=== PATIENT | female | born 1950 | race Caucasian/White ===

== ENCOUNTER 2021-11-19 23:44 | Emergency (ER) | payer MEDICARE ==
[2021-11-20 00:56] LABS: BASOPHIL 0.7 % (0-2); EOSINOPHIL 3.6 % (0-7); HCT 42.2 % (37.0-47.0); HGB 14.3 g/dl (12.5-16.0); LYMPHOCYTE 59.9 % (15-48); MCH 32.6 pg (25.0-31.0); MCHC 33.9 g/dL (32.0-36.0); MCV 96.3 fL (78.0-100.0); MONOCYTE 7.4 % (0-12); MPV 10.4 fL (6.0-9.5); NEUTROPHIL 28.2 % (41-80); NRBC 0; PLT 157 K/uL (150-400); RBC 4.38 M/uL (4.20-5.40); RDW 12.3 % (11.5-14.0); WBC 4.2 K/uL (4.0-10.5)
[2021-11-20 01:25] LABS: BILIRUBIN - TOTAL 0.4 mg/dL (0.2-1.0); BUN/CREAT RATIO (CALC) 15.2 RATIO; CREATININE 0.79 mg/dL (0.51-0.95); GLOBULIN (CALCULATION) 3.9 g/dL; TOTAL PROTEIN 7.9 g/dL (6.4-8.2)
[2021-11-20] MEDS ORDERED: ONDANSETRON ODT4 MG PO (02:00)
[2021-11-20] MEDS ORDERED: ZPAK PO (02:00)
== END 2021-11-20 02:00 | disposition home or self-care (01) ==
LOC: FER 23:44
PROVIDERS: Emergency Medicine
DX: U07.1 COVID-19 (principal); J44.9 Chronic obstructive pulmonary disease, unspecified; I11.0 Hypertensive heart disease with heart failure; I50.9 Heart failure, unspecified; F17.200 Nicotine dependence, unspecified, uncomplicated; Z86.73 Personal history of transient ischemic attack (TIA), and cerebral infarction without residual deficits; Z88.0 Allergy status to penicillin; Z88.2 Allergy status to sulfonamides; Z91.013 Allergy to seafood; Z79.899 Other long term (current) drug therapy
CPT/HCPCS: 36415; 71045; 80053; 84484; 85025; 93005; J1885; J2405; J7030